=== PATIENT | male | born 2000 | race Caucasian/White ===

== ENCOUNTER 2018-12-31 03:56 | Emergency (ER) | payer BC, OTHER ==
[~2018-12-31] VITALS: Ht 175.3 cm; Wt 68.0 kg
--- OUTSIDE RECORDS SUMMARY | 2018-12-31 04:05 | XMS REPORT | Continuity of Care Document ---
Author Author [facility] Address [address] 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 Social History Social History Problem Response Recorded Date/Time Alcohol Use none 05/18/15 12:50pm Drug Use none 05/18/15 12:50pm Hospital Discharge Instructions No hospital discharge instructions. Plan of Care Discharge Date 05/18/15 2:15pm Disposition HOME/SELF CARE Condition at Discharge Improved Instructions/Education Provided Elbow Sprain DI for Elbow Sprain Prescriptions See Medications Section Referrals OUT OF TOWN DOCTOR Additional Instructions/Education The xrays did not show a fracture of the elbow or forearm. This appears to a traumatic sprain, which is injury to the ligaments. Apply ice for 20 minutes 4 -5 times a day at the area of tenderness. Also, take ibuprofen, 200mg, two tablets every 8 hours as needed. Follow up with your doctor this week. Care Plan and Goals Problem: Arm Injury Goal: Rule out or identify any arm injury. Relief of pain, stabilize. Plan: Refer to patient instructions provided. Functional Status No functional status results. Allergies, Adverse Reactions, Alerts Allergen Type Severity Reaction Status Last Updated No Known Allergies Allergy Unknown Active 05/18/15 Immunizations Name Date Given Type *Flu Shot: None Historical *Tetanus Shot: Up To Date Historical Vital Signs Vital Reading Collection Date/Time Result Blood Pressure 05/18/15 12:40pm 121/50 Patient Temperature 05/18/15 12:40pm 96.8 Temperature Source 05/18/15 12:40pm ORL Respiratory Rate 05/18/15 12:40pm 18 Pulse Rate 05/18/15 12:40pm 68 Bedside Pulse Oximetry 05/18/15 12:40pm 100 Height 05/18/15 12:40pm 5 ft 9 in Weight 05/18/15 12:40pm 125 lb Body Mass Index 05/18/15 12:40pm 18.5 Procedures No Known History of Procedures. Results No Known Relevant Diagnostic Tests, Laboratory Data and/or Discharge Summary. Encounters Encounter Location Date/Time Departed [facility] 05/18/15 2:15pm Recent Diagnosis Sprain elbow/forearm
[2018-12-31] MEDS ORDERED: LACTATED RINGERS 1,000 ML IV ONE (04:19)
--- NOTE | 2018-12-31 04:26 | ED Abdominal Pain ---
General Chief Complaint: Abdominal/GI Problems Stated Complaint: ABD PAIN Nursing Triage Note: Pt ambulates to the ED Rm 5 with complaints of epigastric abdominal pain /10 that started at 2340. Pt said he ate [place] food around 2100. Pt said he's been vomiting and diarrhea since 2300. Pt reports he hasn't taken any meds for the pain and hasn't been able to tolerate fluids prior to arrival. Sepsis Screen: No Definite Risk Source of Information: Patient Exam Limitations: No Limitations History of Present Illness Date Seen by Provider: Dec 31, 2018 Time Seen by Provider: 04:07 Initial Comments Patient presents the ER by private conveyance with chief complaint that he thinks he got food poisoning from [employer] in [place], [place]. He ate there at 9:00 and by 11:00 he was violently ill with nausea, vomiting and diarrhea. He has not taken anything for it and has had a very difficult time keeping any fluids down. He has continued to vomit so he decided come to the ER. No previous history of abdominal surgeries, abdominal trauma or medical issues. He denies IBS/IBD. He does not take routine medicines. He denies any fevers or chills. He's having abdominal pain in his epigastric region. Allergies and Home Medications Allergies Coded Allergies: No Known Drug Allergies (Unverified , 12/31/18) Home Medications Ondansetron 4 Mg Tab.rapdis, 4 MG PO Q6H PRN for NAUSEA/VOMITING Prescribed by: MICA HURTADO on 12/31/18 0515 Patient Home Medication List Home Medication List Reviewed: Yes Review of Systems Review of Systems Constitutional: No chills, No fever; malaise EENTM: No Blurred Vision, No Double Vision Respiratory: Denies Cough, Denies Shortness of Air Cardiovascular: Denies Chest Pain Gastrointestinal: Abdominal Pain; Denies Constipated; Diarrhea, Nausea, Poor Fluid Intake, Vomiting Genitourinary: Denies Burning, Denies Discharge Musculoskeletal: No back pain, No joint pain Past Zybnttp-Bfudtc-Rauoeo Hx Patient Social History Alcohol Use: Rarely Uses Recreational Drug Use: No Smoking Status: Current Someday Smoker Type Used: Cigars 2nd Hand Smoke Exposure: No Recent Foreign Travel: No Contact w/Someone Who Travel: No Recent Infectious Disease Expo: No Recent Hopitalizations: No Physical Abuse: No Sexual Abuse: No Mistreated: No Fear: No Seasonal Allergies Seasonal Allergies: No Past Medical History Surgeries: Yes (Rt shoulder ligament repair ) Orthopedic Respiratory: No Cardiac: No Neurological: No Genitourinary: No Gastrointestinal: No Musculoskeletal: No Endocrine: No HEENT: No Cancer: No Psychosocial: No Integumentary: No Blood Disorders: No Physical Exam Vital Signs Vital Signs - First Documented 12/31/18 04:04 Temp 97.0 Pulse 70 Resp 19 B/P (MAP) 142/81 (101) Pulse Ox 99 O2 Delivery Room Air Capillary Refill : Less Than 3 Seconds Height/Weight/BMI Height: 5'9.00" Weight: 150lbs. oz. 68.955781is; BMI Method:Stated General Appearance: WD/WN, mild distress HEENT: PERRL/EOMI, normal ENT inspection; No pharynx normal (oropharynx is very dry) Neck: non-tender, full range of motion Respiratory: lungs clear, normal breath sounds, no respiratory distress, no accessory muscle use Cardiovascular: normal peripheral pulses, regular rate, rhythm, no edema Peripheral Pulses: 2+ Radial Pulses (R), 2+ Radial Pulses (L) Gastrointestinal: normal bowel sounds, soft, no organomegaly; No rebound; tenderness (negative for Westfall sign but tenderness is positive in the right upper quadrant and epigastric region.) Extremities: normal range of motion, normal capillary refill Neurologic/Psychiatric: alert, normal mood/affect, oriented x 3 Skin: normal color, warm/dry Progress/Results/Core Measures Results/Orders Lab Results Laboratory Tests Test 12/31/18 04:07 Range/Units White Blood Count 15.2 H 4.3-11.0 10^3/uL Red Blood Count 5.92 H 4.35-5.85 10^6/uL Hemoglobin 16.6 13.3-17.7 G/DL Hematocrit 47 40-54 % Mean Corpuscular Volume 80 80-99 FL Mean Corpuscular Hemoglobin 28 25-34 PG Mean Corpuscular Hemoglobin Concent 35 32-36 G/DL Red Cell Distribution Width 13.5 10.0-14.5 % Platelet Count 331 130-400 10^3/uL Mean Platelet Volume 9.9 7.4-10.4 FL Neutrophils (%) (Auto) 80 H 42-75 % Lymphocytes (%) (Auto) 12 12-44 % Monocytes (%) (Auto) 7 0-12 % Eosinophils (%) (Auto) 1 0-10 % Basophils (%) (Auto) 0 0-10 % Neutrophils # (Auto) 12.2 H 1.8-7.8 X 10^3 Lymphocytes # (Auto) 1.8 1.0-4.0 X 10^3 Monocytes # (Auto) 1.1 H 0.0-1.0 X 10^3 Eosinophils # (Auto) 0.2 0.0-0.3 10^3/uL Basophils # (Auto) 0.0 0.0-0.1 10^3/uL Neutrophils % (Manual) 73 % Lymphocytes % (Manual) 19 % Monocytes % (Manual) 8 % Sodium Level 140 135-145 MMOL/L Potassium Level 4.0 3.6-5.0 MMOL/L Chloride Level 103 98-107 MMOL/L Carbon Dioxide Level 24 21-32 MMOL/L Anion Gap 13 5-14 MMOL/L Blood Urea Nitrogen 8 7-18 MG/DL Creatinine 1.05 0.60-1.30 MG/DL Estimat Glomerular Filtration Rate > 60 BUN/Creatinine Ratio 8 Glucose Level 103 70-105 MG/DL Calcium Level 10.3 H 8.5-10.1 MG/DL Corrected Calcium 8.5-10.1 MG/DL Magnesium Level 2.5 H 1.8-2.4 MG/DL Total Bilirubin 1.3 H 0.1-1.0 MG/DL Aspartate Amino Transf (AST/SGOT) 18 5-34 U/L Alanine Aminotransferase (ALT/SGPT) 14 0-55 U/L Alkaline Phosphatase 69 40-136 U/L C-Reactive Protein High Sensitivity 0.10 0.00-0.50 MG/DL Total Protein 8.0 6.4-8.2 GM/DL Albumin 5.2 H 3.2-4.5 GM/DL Lipase 27 8-78 U/L My Orders Orders - MICA HURTADO Cbc With Automated Diff (12/31/18 04:19) Comprehensive Metabolic Panel (12/31/18 04:19) Lipase (12/31/18 04:19) Magnesium (12/31/18 04:19) Hs C Reactive Protein (12/31/18 04:19) Pantoprazole Injection (Protonix Injecti (12/31/18 04:30) Ketorolac Injection (Toradol Injection) (12/31/18 04:30) Ondansetron Injection (Zofran Injectio (12/31/18 04:30) Ed Iv/Invasive Line Start (12/31/18 04:19) Lactated Ringers (Lr 1000 Ml Iv Solution (12/31/18 04:19) Manual Differential (12/31/18 04:07) Lidocaine 2% Viscous 15 Ml (Xylocaine Vi (12/31/18 05:15) Famotidine Tablet (Pepcid Tablet) (12/31/18 05:10) Antacid Suspension (Mylanta Suspension (12/31/18 05:15) Medications Given in ED Current Medications Medications Dose Ordered Sig/Alon Route Start Time Stop Time Status Last Admin Dose Admin Al Hydrox/Mg Hydrox/Simethicone 30 ml ONCE ONCE PO 12/31/18 05:15 12/31/18 05:16 DC 12/31/18 05:19 30 ML Ketorolac Tromethamine 30 mg ONCE ONCE IVP 12/31/18 04:30 12/31/18 04:31 DC 12/31/18 04:28 30 MG Lactated Ringer's 1,000 ml @ 0 mls/hr Q0M ONCE IV 12/31/18 04:19 12/31/18 04:21 DC 12/31/18 04:28 1,000 MLS/HR Lidocaine HCl 15 ml ONCE ONCE PO 12/31/18 05:15 12/31/18 05:16 DC 12/31/18 05:19 15 ML Ondansetron HCl 4 mg ONCE ONCE IVP 12/31/18 04:30 12/31/18 04:31 DC 12/31/18 04:28 4 MG Pantoprazole 40 mg ONCE ONCE IV 12/31/18 04:30 12/31/18 04:31 DC 12/31/18 04:28 40 MG Vital Signs/I&O 12/31/18 04:04 Temp 97.0 Pulse 70 Resp 19 B/P (MAP) 142/81 (101) Pulse Ox 99 O2 Delivery Room Air Blood Pressure Mean: 101 Progress Progress Note #1: Time: 04:25 Progress Note IV fluids, pantoprazole, Toradol, Zofran and check some labs. Suspect possible preformed toxin versus a viral gastroenteritis. Symptomatic support, rehydration and will check labs. Progress Note #2: Time: 05:11 Progress Note Patient says these pains come down from a 6 to a 3 and is feeling much better. Nausea is resolved. Fluids are done. Plan to give him a GI cocktail and if that further improves his symptoms then we'll treat it like gastritis. If he still having residual pain and maybe some gallbladder involvement and he can have it worked up outpatient with his primary medical team at [place]. Departure Impression Primary Impression: Gastroenteritis Additional Impression: Colitis Disposition: HOME, SELF-CARE Condition: Improved Departure-Patient Inst. Decision time for Depature: 05:35 Referrals: NO,LOCAL PHYSICIAN (PCP/Family) Primary Care Physician Patient Instructions: [id number] Add. Discharge Instructions: Drink plenty fluids and stick to a liquid diet until your nausea, vomiting and abdominal pain resolve. Continue to use [id number] pantoprazole 20 mg twice daily until your symptoms improve. Zofran 1 tablet every 6 hours under the tongue as necessary for nausea or vomiting. All discharge instructions reviewed with patient and/or family. Voiced understanding. Scripts Ondansetron (Ondansetron Odt) 4 Mg Tab.rapdis 4 MG PO Q6H PRN for NAUSEA/VOMITING, #10 TAB 0 Refills Prov: MICA HURTADO 12/31/18 Work/School Note: Work Release Form Date Seen in the Emergency Department: Dec 31, 2018 Return to Work: Jan 01, 2019 Restrictions: No Restrictions MICA HURTADO Dec 31, 2018 04:26
[2018-12-31 04:28] LABS: BASOPHILS % (AUTO) 0 % (0-10); EOSINOPHILS # (AUTO) 0.2 10^3/uL (0.0-0.3); EOSINOPHILS % (AUTO) 1 % (0-10); HEMATOCRIT 47 % (40-54); HEMOGLOBIN 16.6 G/DL (13.3-17.7); LYMPHOCYTES # (AUTO) 1.8 X 10^3 (1.0-4.0); LYMPHOCYTES % (AUTO) 12 % (12-44); MEAN CORPUSCULAR HEMOGLOBIN 28 PG (25-34); MEAN CORPUSCULAR HGB CONC 35 G/DL (32-36); MEAN CORPUSCULAR VOLUME 80 FL (80-99); MEAN PLATELET VOLUME 9.9 FL (7.4-10.4); MONOCYTES # (AUTO) 1.1 X 10^3 (0.0-1.0); MONOCYTES % (AUTO) 7 % (0-12); NEUTROPHILS # (AUTO) 12.2 X 10^3 (1.8-7.8); NEUTROPHILS % (AUTO) 80 % (42-75); PLATELET COUNT 331 10^3/uL (130-400); RED CELL DISTRIBUTION WIDTH 13.5 % (10.0-14.5); WHITE BLOOD COUNT 15.2 10^3/uL (4.3-11.0)
[2018-12-31] MEDS ORDERED: KETOROLAC 30 MG/ML VIAL IVP ONE (04:30)
[2018-12-31] MEDS ORDERED: PANTOPRAZOLE 40 MG (PROTONIX) VIAL IV ONE (04:30)
[2018-12-31] MEDS ORDERED: ONDANSETRON 4 MG/2 ML (SDV) Z0FRAN IVP ONE (04:30)
[2018-12-31 04:49] LABS: ALANINE AMINOTRANSFERASE 14 U/L (0-55); ALBUMIN 5.2 GM/DL (3.2-4.5); ALKALINE PHOSPHATASE 69 U/L (40-136); BILIRUBIN,TOTAL 1.3 MG/DL (0.1-1.0); BUN/CREATININE RATIO 8; CALCIUM 10.3 MG/DL (8.5-10.1); CARBON DIOXIDE 24 MMOL/L (21-32); CHLORIDE 103 MMOL/L (98-107); CREATININE SERUM 1.05 MG/DL (0.60-1.30); GFR ESTIMATED > 60; GLUCOSE 103 MG/DL (70-105); LIPASE 27 U/L (8-78); MAGNESIUM 2.5 MG/DL (1.8-2.4); SODIUM 140 MMOL/L (135-145)
[2018-12-31] MEDS ORDERED: FAMOTIDINE 20 MG (PEPCID) TABLET PO STA (05:10)
[2018-12-31] MEDS ORDERED: ANTACID SUSP 30 ML UDC (MYLANTA) PO ONE (05:15)
[2018-12-31] MEDS ORDERED: LIDOCAINE 2% VISCOUS 15 ML UDC PO ONE (05:15)
[2018-12-31] MEDS ORDERED: ONDA4TAB11 PO (05:15)
[2018-12-31 05:20] LABS: LYMPHOCYTES % (MANUAL) 19 %; MONOCYTES % (MANUAL) 8 %; NEUTROPHILS % (MANUAL) 73 %
[2018-12-31 05:44] VITALS: BP 126/84
== END 2018-12-31 05:43 | disposition home or self-care (01) ==
LOC: ER 04:01
DX: K52.9 Noninfective gastroenteritis and colitis, unspecified (principal); F17.290 Nicotine dependence, other tobacco product, uncomplicated
CPT/HCPCS: 36415; 80053; 83690; 83735; 85007; 85027; 86141; 96361; 96374; 96375

== ENCOUNTER 2019-07-29 20:04 | Emergency (ER) | payer BC, OTHER ==
[~2019-07-29] VITALS: Ht 175 cm; Wt 70.3 kg
[~2019-07-29 20:04] MED LIST: ONDA4TAB11 PO
[2019-07-29] MEDS ORDERED: RX-GENTAMICIN SULFATE 0.3% OP 5 ML BTL OP STA (20:17)
[2019-07-29] MEDS ORDERED: BSS 15 ML IR ONE (20:30)
[2019-07-29] MEDS ORDERED: FLUORESCEIN (FLUOR-I-STRIPS) 1 MG STRP OU ONE (20:30)
[2019-07-29] MEDS ORDERED: TETRACAINE 0.5% OPHTH SOLN 4 ML BTL (SINGLE DOSE ONLY) OU ONE (20:30)
--- NOTE | 2019-07-29 20:39 | ED EENT ---
History of Present Illness General Chief Complaint: Eye Problems Stated Complaint: EYE INJ Nursing Triage Note: Pt ambulates to RM 06 with c/o left eye irriation since around 1800 this evening. PT states he has blurry vision when he closes his eye, discharge present and sclera is pink. Source: patient Exam Limitations: no limitations History of Present Illness Date Seen by Provider: Jul 29, 2019 Time Seen by Provider: 20:36 Initial Comments To ER with reports of left eye redness and discharge onset this afternoon. He does report a recent upper respiratory illness. Timing/Duration: gradual Severity: moderate Location: eye (L) Prearrival Treatment: no prearrival treatment Associated Symptoms: denies symptoms Allergies and Home Medications Allergies Coded Allergies: No Known Drug Allergies (Unverified , 12/31/18) Home Medications Ondansetron 4 Mg Tab.rapdis, 4 MG PO Q6H PRN for NAUSEA/VOMITING Prescribed by: MICA HURTADO on 12/31/18 0515 Patient Home Medication List Home Medication List Reviewed: Yes Review of Systems Review of Systems Constitutional: see HPI Eyes: See HPI Ears: No Symptoms Reported Nose: no symptoms reported Mouth: no symptoms reported Throat: no symptoms reported Respiratory: no symptoms reported Cardiovascular: no symptoms reported Musculoskeletal: no symptoms reported Skin: no symptoms reported Neurological: No Symptoms Reported Past Lgvmbjx-Fwnrxg-Txiesv Hx Patient Social History Alcohol Use: Denies Use Recreational Drug Use: No Smoking Status: Current Someday Smoker Type Used: Cigars 2nd Hand Smoke Exposure: No Recent Foreign Travel: No Contact w/Someone Who Travel: No Recent Infectious Disease Expo: No Recent Hopitalizations: No Physical Abuse: No Sexual Abuse: No Mistreated: No Fear: No Seasonal Allergies Seasonal Allergies: No Past Medical History Surgeries: Yes (Rt shoulder ligament repair ) Orthopedic Respiratory: No Cardiac: No Neurological: No Genitourinary: No Gastrointestinal: No Musculoskeletal: No Endocrine: No HEENT: No Cancer: No Psychosocial: No Integumentary: No Blood Disorders: No Physical Exam Vital Signs Vital Signs - First Documented 07/29/19 20:14 Temp 37.2 Pulse 67 Resp 20 B/P (MAP) 145/85 (105) Pulse Ox 99 O2 Delivery Room Air Height, Weight, BMI Height: 5'9.00" Weight: 150lbs. oz. 68.963734se; 22.00 BMI Method:Stated General Appearance: WD/WN, no apparent distress Eyes: left eye other (palpebral conjunctivitis without bulbar conjunctivitis, there is purulent matting in the lateral and medial canthus of each eye, fluorescein shows no areas of dye uptake staining); bilateral eye PERRL, bilateral eye EOMI Mouth/Throat: normal mouth inspection, pharynx normal Neck: non-tender, full range of motion Respiratory: no respiratory distress, no accessory muscle use Neurologic/Psychiatric: alert, normal mood/affect, oriented x 3 Skin: normal color, warm/dry Progress/Results/Core Measures Results/Orders My Orders Orders - VERÓNICA RIDER APRN Tetracaine 0.5% Ophth Yuki Sdv (Tetracai (07/29/19 20:30) Fluorescein Strips ([id number]) (07/29/19 20:30) Balanced Salt Irrigation Soln (Bss Irrig (07/29/19 20:30) Rx-Gentamicin Ophth Soln (Rx-Gentamicin (07/29/19 20:17) Vital Signs/I&O 2 Blood Pressure Mean: 105 Departure Impression Primary Impression: Conjunctivitis Qualified Codes: H10.31 - Unspecified acute conjunctivitis, right eye Disposition: 01 HOME, SELF-CARE Condition: Stable Departure-Patient Inst. Decision time for Depature: 20:38 Referrals: NO,LOCAL PHYSICIAN (PCP/Family) Primary Care Physician Patient Instructions: Conjunctivitis ([place]) (DC) Add. Discharge Instructions: 1. 2 drops of antibiotic every 4 hours while awake. All discharge instructions reviewed with patient and/or family. Voiced understanding. VERÓNICA RIDER APRN Jul 29, 2019 20:38
[2019-07-29 20:44] VITALS: BP 145/85
== END 2019-07-29 20:44 | disposition home or self-care (01) ==
LOC: EDUNIT# 20:04 → ER 20:05
DX: H10.9 Unspecified conjunctivitis (principal); F17.290 Nicotine dependence, other tobacco product, uncomplicated
CPT/HCPCS: 99283